=== PATIENT | female | born 1945 | race Caucasian/White ===

== ENCOUNTER 2024-08-10 12:52 | Outpatient (RCR) | payer MEDICARE, BC, SELFPAY ==
[2024-08-03] MEDS: VENOFER 265 MG IV (13:29)
[2024-08-03 13:40] VITALS: BP 143/74
[2024-08-03 15:13] VITALS: BP 123/77
[2024-08-03] MEDS: CYANOCOBALAMIN 1000 MCG IM (15:20)
[2024-08-10 13:14] VITALS: BP 126/76
[2024-08-10] MEDS: VENOFER 265 MG IV (13:35)
[2024-08-10] MEDS: CYANOCOBALAMIN 1000 MCG IM (13:39)
[2024-08-10 15:20] VITALS: BP 130/74
== END 2024-08-11 08:34 | disposition home or self-care (01) ==
LOC: OID 12:52
PROVIDERS: ATTENDING PHYSICIAN Physician Assistant Medical
DX: D50.9 Iron deficiency anemia, unspecified (principal); E53.8 Deficiency of other specified B group vitamins
CPT/HCPCS: 36415; 96365; 96366; 96372; J1756

== ENCOUNTER 2024-08-12 07:05 | Inpatient (IN) | payer MEDICARE, BC, SELFPAY ==
[2024-07-20 14:05] LABS: Hemoglobin 9.7 g/dL (12.0-16.0); Mean Corp Hgb Conc. 30.3 g/dL (33.0-37.0); Mean Corpuscular Hgb 24.8 pg (27.0-31.0); Mean Corpuscular Volume 81.8 fL (81.0-99.0); Mean Platelet Volume 9.9 fL (7.4-10.4); Platelet Count 346 10^3/uL (130-400); Red Blood Cell Count 3.91 10^6/uL (4.20-5.40); Red Cell Dist. Width 17.9 % (11.5-14.5); White Blood Cell Count 7.8 10^3/uL (4.8-10.8)
[2024-07-20 14:10] VITALS: BMI 22.8
[2024-07-20 14:36] LABS: ALT (SGPT) 14 U/L (0-35); AST (SGOT) 22 U/L (14-36); Albumin 4.9 g/dl (3.5-5.0); Alkaline Phosphatase 88 U/L (38-126); Blood Urea Nitrogen 26 mg/dl (7-17); Calcium 10.4 mg/dl (8.4-10.2); Carbon Dioxide 26 mmol/L (22-30); Chloride 104 mmol/L (98-107); Estimated Creatinine Clearance 34 ml/min; Glucose 98 mg/dl (70-99); Iron 37 ug/dl (37-170); Potassium 4.2 mmol/L (3.5-5.1); Sodium 143 mmol/L (135-145); Total Bilirubin 0.8 mg/dl (0.2-1.3); Total Protein 7.4 g/dl (6.3-8.2); eGFR 51.11
[2024-07-20 14:45] LABS: Percent Saturation 7 % (20-50); Total Iron Binding Capacity 473 ug/dl (265-497)
[2024-07-20 23:53] LABS: Vitamin D, 25-OH*** 13.7 ng/mL (30-80)
[2024-07-21 00:11] LABS: Ferritin 7.9 ng/ml (11.1-264.0)
[2024-07-21 00:26] LABS: Vitamin B12 233 pg/ml (239-931)
[2024-07-21 09:44] LABS: Glycohemoglobin (HgbA1c) 5.6 % (4.0-5.6)
--- NOTE | 2024-07-21 11:23 | W.PN.UPDATE ---
Update Note
Progress Note Update
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
IV iron and IM B12 has been arranged preoperatively. Additional dose
while inpatient and she will continue on oral supplement.
Mild hypercalcemia likely due to Vitamin D deficiency. Stores
checked and are low. Ergocalciferol Rx provided for fracture prevention.
[2024-07-21 12:07] VITALS: BMI 22.8
[2024-08-12] VITALS (20 sets, daily range): BP systolic 87–152; BP diastolic 56–86; BMI 22.8
[2024-08-12 07:18] LABS: Glucose - Point of Care 110 mg/dl (70-99)
--- NOTE | 2024-08-12 07:42 | W.DS.TRANS ---
DC Summary - Lifestyle Consultant
-
Discharge Instructions:
Sleep Apnea Risk Low
Discharge Diagnosis/Procedures L TKA DR. Noble 08/12/24
Diet As tolerated
Activity With Walker
Driving Restrictions No driving
Bathing Restrictions OK to Shower
Other Services PT
Instructions:
Stand-Alone Forms: Total Hip/Knee Replacement D/C
Changes to Home Medications: Yes
Discharge Medications:
DC Medications w/original date entered in [facility]
cholecalciferol (vitamin D3) 50 mcg (2,000 unit) tablet 2,000 units PO DAILY 05/31/21
clopidogrel 75 mg tablet 75 mg PO DAILY #19 tabs 05/31/21
metoprolol succinate 50 mg tablet,extended release 24 hr 50 mg PO DAILY #30 tabs 05/31/21
atorvastatin 40 mg tablet 40 mg PO DAILY 07/17/24
ferrous sulfate 325 mg (65 mg iron) tablet (FeroSul) 325 mg PO DAILY 07/17/24
semaglutide (weight loss) 0.25 mg/0.5 mL subcutaneous pen injector (Wegovy) 0.25 mg SC QWEEK 07/17/24
dexamethasone 4 mg tablet 4 mg PO BID inflammation #6 tabs 07/20/24
gabapentin 300 mg capsule 300 mg PO HS sleep/pain #10 caps 07/20/24
mupirocin 2 % topical ointment 1 applic topical BID infection prevention #1 tube 07/20/24
ondansetron 4 mg disintegrating tablet 4 mg PO Q6H PRN n/v #20 tabs 07/20/24
oxycodone 5 mg tablet 5 mg PO Q6H PRN 1 tab moderate pain, 2 tabs severe pain #30 tabs 07/20/24
ergocalciferol (vitamin D2) 50 mcg (2,000 unit) capsule 50 mcg PO .twice weekly vitamin D deficiency/hypercalcemia #24 caps 07/21/24
acetaminophen 500 mg tablet (Tylenol Extra Strength) 1,000 mg (2 x 500 mg) PO QID #0 tabs 08/12/24
aspirin 81 mg chewable tablet 81 mg PO BID Blood clot prevention/tx #0 tabs 08/12/24
cyanocobalamin (vitamin B-12) 1,000 mcg tablet 1,000 mcg PO DAILY #30 tabs 08/12/24
docusate sodium 100 mg capsule (Colace) 100 mg PO BID stool softner #1 cap 08/12/24
famotidine 20 mg tablet 20 mg PO HS GI prophylaxis #30 tabs 08/12/24
magnesium hydroxide 400 mg/5 mL oral suspension (Milk of Magnesia) 30 ml PO HS PRN Constipation #1 mL 08/12/24
sennosides 8.6 mg tablet (Senokot) 17.2 mg (2 x 8.6 mg) PO BID laxative #2 tabs 08/12/24
Home Medication Changes
dexamethasone 4 mg tablet 4 mg PO BID inflammation #6 tabs 07/20/24
gabapentin 300 mg capsule 300 mg PO HS sleep/pain #10 caps 07/20/24
mupirocin 2 % topical ointment 1 applic topical BID infection prevention #1 tube 07/20/24
ondansetron 4 mg disintegrating tablet 4 mg PO Q6H PRN n/v #20 tabs 07/20/24
oxycodone 5 mg tablet 5 mg PO Q6H PRN 1 tab moderate pain, 2 tabs severe pain #30 tabs 07/20/24
ergocalciferol (vitamin D2) 50 mcg (2,000 unit) capsule 50 mcg PO .twice weekly vitamin D deficiency/hypercalcemia #24 caps 07/21/24
acetaminophen 500 mg tablet (Tylenol Extra Strength) 1,000 mg (2 x 500 mg) PO QID #0 tabs 08/12/24
aspirin 81 mg chewable tablet 81 mg PO BID Blood clot prevention/tx #0 tabs 08/12/24
cyanocobalamin (vitamin B-12) 1,000 mcg tablet 1,000 mcg PO DAILY #30 tabs 08/12/24
docusate sodium 100 mg capsule (Colace) 100 mg PO BID stool softner #1 cap 08/12/24
famotidine 20 mg tablet 20 mg PO HS GI prophylaxis #30 tabs 08/12/24
magnesium hydroxide 400 mg/5 mL oral suspension (Milk of Magnesia) 30 ml PO HS PRN Constipation #1 mL 08/12/24
sennosides 8.6 mg tablet (Senokot) 17.2 mg (2 x 8.6 mg) PO BID laxative #2 tabs 08/12/24
Pending Results: No
--- NOTE | 2024-08-12 07:43 | W.PN.UPDATE ---
Update Note
Progress Note Update
L TKA Dr. Noble 08/12/24
DVT ppx Eliquis 2.5mg bid
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
--EKG- tele-change dvt ppx to Eliquis at modified dose -consult cards-CHADs -Vasc score 6
Hx CVA, suspected embolic-some mild deficits-Plavix on hold
Multifactorial anemia:
IV iron and B12 IM arranged [id number] stores and dose this visit if indicated
CKD 3 based on GFR, worsened renal function-no nephrotoxic agents and check CMP
Mild hypercalcemia likely due to Vit D deficiency-supplemented
[2024-08-12] MEDS: NORMOSOL-R/PLASMALYTE-A 1000 IV ×2 (07:48→11:11)
[2024-08-12] MEDS: TYLENOL 650 MG PO ×5 (07:48→23:16)
[2024-08-12] MEDS: CELEBREX 200 MG PO (07:49)
[2024-08-12] MEDS: DILAUDID 0.5 MG IV (10:11)
[2024-08-12 10:18] LABS: Hematocrit 31.4 % (37.0-47.0); Hemoglobin 9.6 g/dL (12.0-16.0); Mean Corp Hgb Conc. 30.6 g/dL (33.0-37.0); Mean Corpuscular Hgb 26.2 pg (27.0-31.0); Mean Corpuscular Volume 85.8 fL (81.0-99.0); Platelet Count 281 10^3/uL (130-400); Red Blood Cell Count 3.66 10^6/uL (4.20-5.40); Red Cell Dist. Width 20.4 % (11.5-14.5); White Blood Cell Count 8.8 10^3/uL (4.8-10.8)
[2024-08-12] MEDS: ROXICODONE 5 MG PO (10:30)
[2024-08-12] MEDS: DILAUDID 0.25 MG IV (10:39)
[2024-08-12 11:02] LABS: Iron 71 ug/dl (37-170)
[2024-08-12] MEDS: TOPROL XL PO (12:35)
[2024-08-12] MEDS: ZOFRAN 4 MG IV (12:35)
[2024-08-12] MEDS: TYLENOL PO ×2 (12:38→13:01)
--- NOTE | 2024-08-12 12:57 | PTCARENOTE ---
pt admitted s/p Left TKA. AOx3. friend at bedside. c/o nausea, Zofran administered. NSR, 2L via NC. abd soft NT. +BSx4. Mepilex dressing with scant dry drainage skin otherwise intact. No edema +PP B/L. TEDS and b/l foot pumps in place. CB in reach-
educated to use.
--- NOTE | 2024-08-12 13:10 | PTCARENOTE ---
stat EKG pt was in NSR, but abruptly changed to rapid DOMINGO rate in 120-130's, EKG demonstrated Afib RVR. Ortho PA notified, cardiology consult. pressure 101/66 pt endorses light headedness and nausea.
[2024-08-12 13:23] LABS: Glucose - Point of Care 169 mg/dl (70-99)
--- NOTE | 2024-08-12 13:33 | RR ---
A Rapid Response was called on this patient, please see Rapid Response form. afib rvr stat EKG, cardiology consult, pt endorses lightheadedness and nausea
[2024-08-12] MEDS: LOPRESSOR 2.5 MG IV ×2 (13:50→14:20)
[2024-08-12 14:02] LABS: INR 1.13
--- NOTE | 2024-08-12 14:04 | CON.CAR ---
Addendum entered and electronically signed by Kwame Wade MD 08/12/24 14:39:
I saw and examined the patient.
The INFORMATICS DEVELOPER or PA's note was reviewed and I agree with the note.
Comment: General: Well developed, well nourished in NAD.
Neck: Supple, no JVD, HJR, carotids +2 B/L, no bruits bilaterally.
Heart: Non displaced PMI, irregular, tachycardic, no murmurs, No S3, S4, no rubs.
Lungs: Clear to auscultation bilaterally, no wheeze, rhonchi, rubs bilaterally,
normal expiratory phase.
Extremities: No clubbing, cyanosis or edema bilaterally.
Neuro: Grossly nonfocal, awake, alert and oriented x3.
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 She was seen in 2021 with bihemispheric CVA had a 4-week monitor it was negative for A-fib. She is recommended Linq monitor but this was not
completed. She underwent right total knee replacement on 08/12/2024 earlier today. She was in sinus rhythm then went into A-fib with hypotension. Of note she was asymptomatic without chest pain, short breath, or palpitations. She remains in A-fib
at the present time and have given 2.5 mg of IV Lopressor
Will attempt to rate control with 2.5 mg more of IV Lopressor. May need to give IV Cardizem drip. Will resume outpatient p.o. Lopressor. She will need anticoagulation when okay with surgery. We also could consider cardioversion if remains in
A-fib but need to make sure that she can be anticoagulated first. Discussed with daughter at bedside as well as nursing
Original Note:
Consultation
Consultation Request
Date/Time Consultation Performed: 08/12/24
Requesting Provider: Tamra Riley PA-C
Performing Provider: Andreia Ladd PA-C for Dr. Wade
Reason for Consultation: afib
Medical History
-
Chief Complaint: knee replacement
History of Present Illness:
Patient is a 78-year-old female with past medical history of bihemispheric CVA in 2021 with 4-week monitor negative for atrial fibrillation. She was recommended Linq implant, however this was never completed. She has history of hypertension and
hyperlipidemia and is maintained on Toprol 50 mg daily, and Lipitor 40 mg daily. She underwent right knee replacement 08/12/2024. She came to the floor in sinus rhythm, however then went into atrial fibrillation with rapid ventricular response
which is new diagnosis for patient. Blood pressure was noted to drop prior to any medications being given into 90s over 60s. Pulse ox was noted to drop into 80s, improved on 2L NC. She remains asymptomatic without chest discomfort, shortness of
breath, palpitations, however remains groggy. Cardiology was consulted for urgent evaluation.
PMH:
History of B/L CVA 2021
HTN
HLD
remote former smoker
Past Medical History
Past Medical History: Other (in HPI)
Social History
Tobacco: Former Smoker (remote)
Alcohol: None
Living: Alone
Employment: Retired
Family History
Family History: CAD
Allergies / Home Medications
Allergy/AdvReac Type Severity Reaction Status Date / Time
No Known Allergies Allergy Verified 08/12/24 07:19
�Medication �Instructions �Recorded �Confirmed �Type
cholecalciferol (vitamin D3) 50 2,000 units PO DAILY 05/31/21 08/12/24 Rx
mcg (2,000 unit) tablet
clopidogrel 75 mg tablet 75 mg PO DAILY #19 tabs 05/31/21 08/12/24 Rx
metoprolol succinate 50 mg 50 mg PO DAILY #30 tabs 05/31/21 08/12/24 Rx
tablet,extended release 24 hr
atorvastatin 40 mg tablet 40 mg PO DAILY 07/17/24 08/12/24 History
ferrous sulfate 325 mg (65 mg 325 mg PO DAILY 07/17/24 08/12/24 History
iron) tablet (FeroSul)
semaglutide (weight loss) 0.25 0.25 mg SC QWEEK 07/17/24 08/12/24 History
mg/0.5 mL subcutaneous pen
injector (Wegovy)
dexamethasone 4 mg tablet 4 mg PO BID inflammation #6 tabs 07/20/24 08/10/24 Rx
gabapentin 300 mg capsule 300 mg PO HS sleep/pain #10 caps 07/20/24 08/10/24 Rx
mupirocin 2 % topical ointment 1 applic topical BID infection 07/20/24 08/10/24 Rx
prevention #1 tube
ondansetron 4 mg disintegrating 4 mg PO Q6H PRN n/v #20 tabs 07/20/24 08/10/24 Rx
tablet
oxycodone 5 mg tablet 5 mg PO Q6H PRN 1 tab moderate 07/20/24 08/10/24 Rx
pain, 2 tabs severe pain #30 tabs
ergocalciferol (vitamin D2) 50 mcg 50 mcg PO .twice weekly vitamin D 07/21/24 08/10/24 Rx
(2,000 unit) capsule deficiency/hypercalcemia #24 caps
acetaminophen 500 mg tablet 1,000 mg (2 x 500 mg) PO QID #0 08/12/24 08/12/24 Rx
(Tylenol Extra Strength) tabs
aspirin 81 mg chewable tablet 81 mg PO BID Blood clot 08/12/24 08/12/24 Rx
prevention/tx #0 tabs
cyanocobalamin (vitamin B-12) 1,000 mcg PO DAILY #30 tabs 08/12/24 08/12/24 Rx
1,000 mcg tablet
docusate sodium 100 mg capsule 100 mg PO BID stool softner #1 cap 08/12/24 Rx
(Colace)
famotidine 20 mg tablet 20 mg PO HS GI prophylaxis #30 tabs 08/12/24 Rx
magnesium hydroxide 400 mg/5 mL 30 ml PO HS PRN Constipation #1 mL 08/12/24 Rx
oral suspension (Milk of Magnesia)
sennosides 8.6 mg tablet (Senokot) 17.2 mg (2 x 8.6 mg) PO BID 08/12/24 Rx
laxative #2 tabs
Review of Systems
-
History Source: Patient and Family
All other systems: Negative unless noted
Physical Exam
Vital Signs
Temp Pulse Resp BP Pulse Ox
98 F 82 16 107/63 93
08/12/24 12:00 08/12/24 14:01 08/12/24 14:01 08/12/24 14:01 08/12/24 14:01
Lab Results
08/12/24 10:06
Physical Exam
General: No Apparent Distress, Comfortable and Other (groggy. on supp O2)
HEENT: Normocephalic, Anicteric and Moist Mucous Membranes
Respiratory: Clear and Non Labored Respirations
Cardiac: S1/S2, Irregular Rhythm and Murmur
GI: Soft, Non Tender and Non Distended
Musculoskeletal: No Clubbing, No Cyanosis and No Edema
Skin: Warm and Dry
Neuro: AO x 3
Impression / Plan
-
Primary Title Searcher: Dr. Ruth
Assessment:
OA s/p R knee replacement 08/12/24
Atrial fibrillation with RVR, new diagnosis
Hypotension associated with above
History of B/L CVA 2021
HTN
HLD
remote former smoker
ECHO 2021: EF 60 to 65%, no regional wall motion abnormalities, no significant valvular disease, no evidence of cardiac source of embolus
Plan:
- Patient underwent right knee replacement this morning without issues. Upon transfer to room 2114, patient was in sinus rhythm on telemetry. Shortly thereafter was noted to go into atrial fibrillation with rapid ventricular response, which is new
diagnosis for patient. Associated with this she had drop in blood pressure as well as drop in pulse ox. She was placed on supplemental oxygen with some improvement. Cardiology was consulted for urgent evaluation
- She remains asymptomatic
- reviewed preop and post op EKGs
- Ordered IV Lopressor 2.5 mg stat, with modest improvement in heart rates, however remained in A-fib. Blood pressures are slowly improving around 100 systolic.
- Will follow heart rates and if remain elevated, we will plan to give additional 2.5 mg IV Lopressor
- Will continue outpatient Toprol 50 mg daily, and will consider giving additional po lopressor dose this evening if BPs will tolerate
- check TSH
- check echo, last from 2021 as above
- reviewed afib with patient and family at bedside. [id number] score of 6 for age, female, HTN, h/o CVA. will need eventual OAC when ok per surgery. will have CM assess cost to patient of eliquis 2.5mg BID as patient will be 79yo in 2.5 weeks and
weight<60 kg.
- will follow closely
- d/w nursing
Data Reviewed
-
EKG: Tracing Personally Visualized and interpreted
Medical Tests (Nuc Med, Echo etc): Report Reviewed by me
Labs: Labs Reviewed by me
Old Records: Reviewed
[2024-08-12 14:06] LABS: ALT (SGPT) 19 U/L (0-35); AST (SGOT) 33 U/L (14-36); Albumin 3.8 g/dl (3.5-5.0); Alkaline Phosphatase 70 U/L (38-126); Blood Urea Nitrogen 19 mg/dl (7-17); Calcium 9.7 mg/dl (8.4-10.2); Carbon Dioxide 24 mmol/L (22-30); Chloride 107 mmol/L (98-107); Estimated Creatinine Clearance 54 ml/min; Glucose 161 mg/dl (70-99); Potassium 4.7 mmol/L (3.5-5.1); Sodium 139 mmol/L (135-145); Total Bilirubin 0.8 mg/dl (0.2-1.3); Total Protein 6.2 g/dl (6.3-8.2); eGFR > 60.00
[2024-08-12] MEDS: LIPITOR PO (14:06)
[2024-08-12] MEDS: CYANOCOBALAMIN IM (14:07)
[2024-08-12 14:12] LABS: Troponin I < 0.012 ng/ml
--- NOTE | 2024-08-12 14:13 | PTCARENOTE ---
cardiology notified HR remains irregular in 120's 107/63 n/o additional dose of IV lopressor.
--- NOTE | 2024-08-12 14:34 | PTCARENOTE ---
pt's HR irregular 129, BP 87/58, PO 78% on 2L while sleeping. lethargic, arousable. after waking up with 02 increased to 4L PO 93%. RT at bedside. Cardiology aware of current vitals
[2024-08-12 15:18] LABS: TSH Reflex To Free T4 1.33 uIU/ml (0.47-4.68)
[2024-08-12] MEDS: CYANOCOBALAMIN 1000 MCG IM (15:32)
[2024-08-12] MEDS: ANCEF 5 IV ×2 (15:33→23:16)
[2024-08-12] MEDS: ULTRAM 25 MG PO (20:35)
[2024-08-12] MEDS: ELIQUIS 2.5 MG PO (20:38)
[2024-08-12] MEDS: SENOKOT 17.2 MG PO (20:38)
[2024-08-12] MEDS: COLACE 100 MG PO (20:38)
[2024-08-12] MEDS: DECADRON 4 MG IV (20:38)
[2024-08-12] MEDS: NEURONTIN 300 MG PO (22:34)
[2024-08-12] MEDS: BACTROBAN 2% OINTMENT 1 APPLIC NASAL (22:34)
[2024-08-13 03:00] VITALS: BP 135/77
--- NOTE | 2024-08-13 03:53 | DOWNTIME ---
There was a [employer] Downtime on 08/13/2024 from 0200 to 08/14/2023 at 0318 . Downtime documentation of patient's care, including medication administrations, has been reconciled in the electronic record per guidelines. Refer to the
patient's paper chart under the miscellaneous tab to see printed paper medication records and downtime forms.
[2024-08-13] MEDS: TYLENOL 650 MG PO ×4 (04:37→16:49)
[2024-08-13 07:45] VITALS: BP 129/69
[2024-08-13 07:56] LABS: Hematocrit 30.8 % (37.0-47.0); Hemoglobin 9.6 g/dL (12.0-16.0); Mean Corp Hgb Conc. 31.2 g/dL (33.0-37.0); Mean Corpuscular Hgb 26.5 pg (27.0-31.0); Mean Corpuscular Volume 85.1 fL (81.0-99.0); Mean Platelet Volume 10.1 fL (7.4-10.4); Platelet Count 262 10^3/uL (130-400); Red Blood Cell Count 3.62 10^6/uL (4.20-5.40); Red Cell Dist. Width 20.2 % (11.5-14.5); White Blood Cell Count 13.3 10^3/uL (4.8-10.8)
--- NOTE | 2024-08-13 08:04 | CM ---
CM reviewed medical records. Cm met with patient in room. Patient confirmed demographics. Patient lives independently alone. Patient stated that her is currently a LTC resident of [facility]. Patient stated her friend would be
available for assistance, but will not be staying with her. Patient stated she had home care, but cannot remember the agency. Patient has never been to SNF. Patient has a walker, raised toilet seat, and grabbers. Patient is active with her PCP.
Patient uses [facility] for medication services.
Patient stated that she made arrangements for outpatient PT with [facility] and she has an appointment set up for 08/14.
PLAN: Home with Outpatient PT.
[2024-08-13] MEDS: BACTROBAN 2% OINTMENT 1 APPLIC NASAL (08:09)
[2024-08-13] MEDS: LIPITOR 40 MG PO (08:10)
[2024-08-13] MEDS: ULTRAM 25 MG PO (08:10)
[2024-08-13] MEDS: CYANOCOBALAMIN 1000 MCG IM (08:11)
[2024-08-13] MEDS: SENOKOT 17.2 MG PO (08:11)
[2024-08-13] MEDS: ELIQUIS 2.5 MG PO (08:11)
[2024-08-13] MEDS: DECADRON 4 MG IV (08:11)
[2024-08-13] MEDS: COLACE 100 MG PO (08:11)
[2024-08-13] MEDS: FERRLECIT 110 MG IV (08:12)
[2024-08-13 08:29] LABS: ALT (SGPT) 22 U/L (0-35); AST (SGOT) 33 U/L (14-36); Albumin 4.2 g/dl (3.5-5.0); Alkaline Phosphatase 79 U/L (38-126); Blood Urea Nitrogen 20 mg/dl (7-17); Calcium 9.8 mg/dl (8.4-10.2); Carbon Dioxide 23 mmol/L (22-30); Chloride 104 mmol/L (98-107); Estimated Creatinine Clearance 47 ml/min; Glucose 147 mg/dl (70-99); Potassium 4.2 mmol/L (3.5-5.1); Sodium 138 mmol/L (135-145); Total Bilirubin 0.9 mg/dl (0.2-1.3); Total Protein 6.4 g/dl (6.3-8.2); eGFR > 60.00
[2024-08-13] MEDS: TOPROL XL 25 MG PO (10:23)
[2024-08-13 11:00] VITALS: BP 133/81
[2024-08-13 11:25] VITALS: BP 133/74; PULSE 89; O2SAT 92
--- NOTE | 2024-08-13 11:30 | W.PN.CARDCBS ---
Addendum entered and electronically signed by Floyd Rubio MD 08/13/24 15:25:
I saw and examined the patient.
The Plan Examiner's note was reviewed and I agree with the note.
Comment: Briefly, 78-year-old woman presenting for knee replacement and postoperatively developed atrial fibrillation
Currently maintaining sinus rhythm by my review of telemetry
Transthoracic echocardiogram shows normal LV function and no high-grade valve disease
Agree with continuing Toprol for rate control
Eliquis for cardioembolic prophylaxis
Stable cardiac status, we will sign off, outpatient follow-up has been arranged
Original Note:
Today's Communication / Plan
-
Continue postop care
Toprol 50 mg daily
Eliquis 2.5 mg twice daily
outpatient cardiac follow-up arranged
Impression / Plan
-
Primary Supervisor Typesetting: Dr. Ruth
Assessment:
OA s/p R knee replacement 08/12/24
Atrial fibrillation with RVR, new diagnosis
Hypotension associated with above
History of B/L CVA 2021
HTN
HLD
remote former smoker
ECHO 2021: EF 60 to 65%, no regional wall motion abnormalities, no significant valvular disease, no evidence of cardiac source of embolus
Echo 08/13/24: EF 64%, no regional wall motion abnormalities, no significant valvular pathology
Plan:
- She spontaneously converted to sinus rhythm around 1500 08/12. she has remained in SR since that time on review of tele.
- She is currently on Toprol 25 mg daily, however as an outpatient was on 50 mg daily. Would increase back to 50 mg daily for discharge as blood pressures have been stable overnight
- TSH within normal limits
- trop negative x1
- Echo with preserved EF as above
- She has been started on Eliquis 2.5 mg twice daily as patient will be 79 years old and 2.5 weeks and weight greater than 60 kg. Of note there is concern for affordability to patient. Have provided patient with 30-day free co-pay card, and then
can reassess affordability as outpatient
- Will arrange outpatient cardiac follow-up
- d/w nursing
Progress Note - Supervisor Typesetting
Subjective
Date of Service: August 13, 2024
Denies any issues overnight. Eager for discharge
Objective
Labs:
08/13/24 07:40
08/13/24 07:40
Labs
Hgb 9.6 g/dL (12.0-16.0) L 08/13/24 07:40
Hct 30.8 % (37.0-47.0) L 08/13/24 07:40
Plt Count 262 10^3/uL (130-400) 08/13/24 07:40
PT 15.0 Sec (11.4-14.6) H 08/12/24 13:30
INR 1.13 08/12/24 13:30
APTT 27.0 Sec (23.4-35.0) 08/12/24 13:30
Sodium 138 mmol/L (135-145) 08/13/24 07:40
Potassium 4.2 mmol/L (3.5-5.1) 08/13/24 07:40
BUN 20 mg/dl (7-17) H 08/13/24 07:40
Creatinine 0.8 mg/dL (0.6-1.0) 08/13/24 07:40
Glucose 147 mg/dl (70-99) H 08/13/24 07:40
Troponins
08/12/24
13:30
Troponin I < 0.012
Vital Signs and I&O:
Vital Signs
Temp Pulse Resp BP Pulse Ox
98.5 F 90 16 132/66 94
08/13/24 07:45 08/13/24 07:45 08/13/24 07:45 08/13/24 10:23 08/13/24 07:45
Vital Signs
Temp Pulse Resp BP Pulse Ox
98.5 F 90 16 132/66 94
08/13/24 07:45 08/13/24 07:45 08/13/24 07:45 08/13/24 10:23 08/13/24 07:45
Intake & Output
08/11/24 08/12/24 08/13/24 08/14/24
07:59 07:59 07:59 07:59
Intake Total 425 / 425
Output Total 0 / 0
Balance 425 / 425
Physical Exam
Physical Exam
GEN: No distress, awake, alert, oriented x3. Sitting in chair
HEENT: supple, anicteric, mmm, EOMI
LUNGS: CTA bilaterally, no wheezes/rales
CV: Reg, S1/S2, no murmur
ABD: soft, BS+, NT/ND
EXT: No cyanosis, clubbing. 1+ edema of left lower extremity
NEURO: Gross non-focal
SKIN: Warm, pink, dry. No rash
[2024-08-13 13:36] VITALS: BP 112/76; PULSE 93; O2SAT 90
--- NOTE | 2024-08-13 13:53 | CM ---
CM was updated by orthopedic PA that patient has not followed up with GI. Patient was expressing that she had concerns over cost of care. CM confirmed that patient has medicare and [facility] [employer]. Patient will need Eliquis on discharge.
Pinky Riley with obtain samples from Cardiology office. CM will further provide Eliquis coupons to assist with cost.
CM will send request for services from [facility] via email to assist with patient's follow up care.
PLAN: Home with outpatient therapy at [facility], referral to [facility].
--- NOTE | 2024-08-13 14:27 | W.PN.ORTHO ---
Today's Communication / Plan
-
d/c
Assessment
.
Dressing:
Clean, dry and intact.
Assessment:
Elma Noble 08/12/24
DVT ppx Eliquis 2.5mg bid
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
--EKG- tele-change dvt ppx to Eliquis at modified dose -consult cards-CHADs -Vasc score 6
Hx CVA, suspected embolic-some mild deficits-Plavix on hold in lieu of Eliquis
Multifactorial anemia:
IV iron and B12 IM arranged [id number] stores and dose this visit
CKD 3 based on GFR, worsened renal function-no nephrotoxic agents CMP stable
Mild hypercalcemia likely due to Vit D deficiency-supplemented
Plan
.
Surgery / Date: Elma Noble 08/12/24
DVT Prophylaxis: Other (Eliquis)
Activity:
Out of bed.
PT/OT
Discharge Plan: Home w/ Outpatient PT
Subjective
.
.:
Patient resting comfortably.
Vital Signs and Labs
.
Vital Signs and Labs:
Lab Results
08/13/24 07:40
08/13/24 07:40
Temp Pulse Resp BP Pulse Ox
98.1 F 95 16 133/81 96
08/13/24 11:00 08/13/24 11:00 08/13/24 11:00 08/13/24 11:00 08/13/24 11:00
PT 15.0 Sec (11.4-14.6) H 08/12/24 13:30
INR 1.13 08/12/24 13:30
--- NOTE | 2024-08-13 15:07 | W.DS.TRANS ---
DC Summary - Geomorphologist
-
Discharge Instructions:
Sleep Apnea Risk Low
Discharge Diagnosis/Procedures L OWEN Noble 08/12/24
Diet As tolerated
Activity With Walker
Driving Restrictions No driving
Bathing Restrictions OK to Shower
Other Services PT
Instructions:
Stand-Alone Forms: Total Hip/Knee Replacement D/C
Changes to Home Medications: Yes
Discharge Medications:
DC Medications w/original date entered in [facility]
cholecalciferol (vitamin D3) 50 mcg (2,000 unit) tablet 2,000 units PO DAILY 05/31/21
metoprolol succinate 50 mg tablet,extended release 24 hr 50 mg PO DAILY #30 tabs 05/31/21
atorvastatin 40 mg tablet 40 mg PO DAILY 07/17/24
ferrous sulfate 325 mg (65 mg iron) tablet (FeroSul) 325 mg PO DAILY 07/17/24
semaglutide (weight loss) 0.25 mg/0.5 mL subcutaneous pen injector (Wegovy) 0.25 mg SC QWEEK 07/17/24
dexamethasone 4 mg tablet 4 mg PO BID inflammation #6 tabs 07/20/24
gabapentin 300 mg capsule 300 mg PO HS sleep/pain #10 caps 07/20/24
mupirocin 2 % topical ointment 1 applic topical BID infection prevention #1 tube 07/20/24
ondansetron 4 mg disintegrating tablet 4 mg PO Q6H PRN n/v #20 tabs 07/20/24
oxycodone 5 mg tablet 5 mg PO Q6H PRN 1 tab moderate pain, 2 tabs severe pain #30 tabs 07/20/24
ergocalciferol (vitamin D2) 50 mcg (2,000 unit) capsule 50 mcg PO .twice weekly vitamin D deficiency/hypercalcemia #24 caps 07/21/24
acetaminophen 500 mg tablet (Tylenol Extra Strength) 1,000 mg (2 x 500 mg) PO QID #0 tabs 08/12/24
cyanocobalamin (vitamin B-12) 1,000 mcg tablet 1,000 mcg PO DAILY #30 tabs 08/12/24
docusate sodium 100 mg capsule (Colace) 100 mg PO BID stool softner #1 cap 08/12/24
famotidine 20 mg tablet 20 mg PO HS GI prophylaxis #30 tabs 08/12/24
magnesium hydroxide 400 mg/5 mL oral suspension (Milk of Magnesia) 30 ml PO HS PRN Constipation #1 mL 08/12/24
sennosides 8.6 mg tablet (Senokot) 17.2 mg (2 x 8.6 mg) PO BID laxative #2 tabs 08/12/24
apixaban 2.5 mg tablet (Eliquis) 2.5 mg PO BID Blood clot prevention/tx/afib #90 tabs 08/13/24
Home Medication Changes
dexamethasone 4 mg tablet 4 mg PO BID inflammation #6 tabs 07/20/24
gabapentin 300 mg capsule 300 mg PO HS sleep/pain #10 caps 07/20/24
mupirocin 2 % topical ointment 1 applic topical BID infection prevention #1 tube 07/20/24
ondansetron 4 mg disintegrating tablet 4 mg PO Q6H PRN n/v #20 tabs 07/20/24
oxycodone 5 mg tablet 5 mg PO Q6H PRN 1 tab moderate pain, 2 tabs severe pain #30 tabs 07/20/24
ergocalciferol (vitamin D2) 50 mcg (2,000 unit) capsule 50 mcg PO .twice weekly vitamin D deficiency/hypercalcemia #24 caps 07/21/24
acetaminophen 500 mg tablet (Tylenol Extra Strength) 1,000 mg (2 x 500 mg) PO QID #0 tabs 08/12/24
cyanocobalamin (vitamin B-12) 1,000 mcg tablet 1,000 mcg PO DAILY #30 tabs 08/12/24
docusate sodium 100 mg capsule (Colace) 100 mg PO BID stool softner #1 cap 08/12/24
famotidine 20 mg tablet 20 mg PO HS GI prophylaxis #30 tabs 08/12/24
magnesium hydroxide 400 mg/5 mL oral suspension (Milk of Magnesia) 30 ml PO HS PRN Constipation #1 mL 08/12/24
sennosides 8.6 mg tablet (Senokot) 17.2 mg (2 x 8.6 mg) PO BID laxative #2 tabs 08/12/24
apixaban 2.5 mg tablet (Eliquis) 2.5 mg PO BID Blood clot prevention/tx/afib #90 tabs 08/13/24
Pending Results: No
[2024-08-13 15:45] VITALS: BP 106/73
== END 2024-08-13 18:00 | disposition home or self-care (01) | DRG 470 ==
LOC: 2 SOUTH 07:05
PROVIDERS: Physician Assistant Medical; ADMITTING PHYSICIAN Orthopaedic Surgery; CONSULT PHYSICIAN Internal Medicine Cardiovascular Disease; FAMILY PHYSICIAN Family Medicine
PROC: 0SRD069 Replacement of Left Knee Joint with Oxidized Zirconium on Polyethylene Synthetic Substitute, Cemented, Open Approach (ICD-10-PCS; 2024-08-13)
DX: M17.12 Unilateral primary osteoarthritis, left knee (principal); M21.00 Valgus deformity, not elsewhere classified, unspecified site; Z87.891 Personal history of nicotine dependence; I48.91 Unspecified atrial fibrillation; I95.9 Hypotension, unspecified; I10 Essential (primary) hypertension; E78.5 Hyperlipidemia, unspecified; Z79.899 Other long term (current) drug therapy; Z79.82 Long term (current) use of aspirin
CPT/HCPCS: 36415; 73560; 80048; 80053; 82306; 82607; 82728; 82962; 83036; 83540; 83550; 84443; 84484; 85027; 85610; 85730; 86850; 86900; 86901; 87070; 93005; 93306; 97110; 97116; 97162; 97166; 97535; C1713; C1776; J2916